=== PATIENT | male | born 1945 | race Caucasian/White ===

== ENCOUNTER 2017-09-23 07:22 | Emergency (ER) | payer MEDICARE ==
[~2017-09-23] VITALS: Ht 182.9 cm; Wt 93.9 kg
[~2017-09-23 07:22] MED LIST: AMLO2.5T PO; COZA100T PO; FISH1200 PO; LIPI40TA PO; ST J81CH PO; TAB-TAB PO; [UNRECOGNIZED DRUG - OTHER]
[2017-09-23 07:24] VITALS: BP 163/83; PULSE 106; RESP 16; TEMP 98.2; O2SAT 97
[2017-09-23] MEDS ORDERED: ASPIRIN 81 MG CHEW TAB PO ONE (07:45)
[2017-09-23] MEDS ORDERED: SODIUM CHLORIDE 0.9% FLUSH 10 ML FLUSH IVF PRN (07:45)
[2017-09-23 07:51] VITALS: BP 150/94; PULSE 97; RESP 16; O2SAT 97
--- NOTE | 2017-09-23 07:51 | PD ---
HPI Chief Complaint: Chest Pain Time Seen by Provider: 07:29 Travel History International Travel<30 days: No Contact w/Intl Traveler<30days: No Traveled to known affect area: No History of Present Illness HPI This is a 71-year-old male with a history of hypertension, hyperlipidemia and tobacco abuse who presents for chest pain. Over the last week, he has had episodes of pain in the left upper chest that radiates to the left arm. He has had intermittent tingling in the left arm. He also has had a vague pain on the left side of the anterior neck at times. It is not aggravated by turning his head or palpating his neck. He states that he has felt flushed during these episodes. No shortness of breath. Symptoms are mild in severity. Sore in nature. Onset gradual. No known alleviating or aggravating factors. He took 81 mg of aspirin this morning. He denies any current chest pain. He states that he had bronchitis 2 weeks ago but no current fever, chills, congestion, sore throat, difficulty speaking or swallowing. No vomiting or diarrhea. PFSH Past Medical History Anxiety: No Depression: No Cancer: No Cardiovascular Problems: Yes High Cholesterol: Yes Diminished Hearing: No Endocrine: No GERD: Yes Genitourinary: Yes (problems completely emptying bladder) Hypertension: Yes Immune Disorder: No Musculoskeletal: No Neurologic: No Psychiatric: No Reproductive: No Respiratory: No Past Surgical History Narrative Surgical Hernia repair, cataract surgery Abdominal Surgery: No Cardiac Surgery: No Ear Surgery: No Endocrine Surgery: No Eye Surgery: No Genitourinary Surgery: No Gynecologic Surgery: No Oral Surgery: No Thoracic Surgery: No Social History Alcohol Use: Yes (SOCIALLY) Tobacco Use: Yes (1/2 PPD) Substance Use: No Allergies-Medications (Allergen,Severity, Reaction): Coded Allergies: No Known Allergies (Unverified Adverse Reaction, Unknown, 09/23/17) Reported Meds & Prescriptions Reported Meds & Active Scripts Active Reported Metamucil Original Texture (Psyllium Hydrophilic Mucilloid) 3.4 Gram/7 Gram Pow 1 Scoop PO DIRECTED PRN 1 rounded TEASPOON in 8 oz of liquid at the first sign of irregularity. Lipitor (Atorvastatin Calcium) 20 Mg Tab 20 Mg PO HS Hydrochlorothiazide 25 Mg Tab 25 Mg PO DAILY Ocuvite (Multiple Vitamins W/ Minerals) 1 Tab 1 Tab PO DAILY Centrum Silver (Multiple Vitamins W/ Minerals) 400 Mcg-250 Mcg Chw 1 Tab PO DAILY Aspirin EC (Aspirin) 81 Mg Tabdr 81 Mg PO DAILY Losartan (Losartan Potassium) 100 Mg Tab 100 Mg PO DAILY Review of Systems Except as stated in HPI: all other systems reviewed are Neg Physical Exam Narrative GENERAL: Alert, well nourished, well appearing patient resting on the bed in no acute distress. Vital Signs reviewed SKIN: Focused skin assessment warm/dry. HEAD: Atraumatic. Normocephalic. EYES: Pupils equal and round. No scleral icterus. No injection or drainage. ENT: No nasal bleeding or discharge. Mucous membranes pink and moist. Posterior oropharynx with no erythema, edema, exudate. Uvula is midline NECK: Trachea midline. No JVD. Spontaneous, painless full range of motion with no meningismus CARDIOVASCULAR: Regular rate and rhythm. No murmur appreciated. Extremities warm and well perfused with bounding peripheral pulses RESPIRATORY: No accessory muscle use. Clear to auscultation. Breath sounds equal bilaterally. Breathing easily and speaking in full sentences GASTROINTESTINAL: Abdomen soft, non-tender, nondistended. Normal bowel sounds. No rigid, rebound, guarding MUSCULOSKELETAL: No obvious deformities. No clubbing. No cyanosis. No edema. Compartments are soft. Painless full range of motion of left shoulder. NEUROLOGICAL: Awake and alert. No obvious cranial nerve deficits. Motor grossly within normal limits. Normal speech. Sensation intact. Normal gait. No pronator drift.. No paresthesias in left arm. Data Data Last Documented VS Vital Signs Date Time Temp Pulse Resp B/P (MAP) Pulse Ox O2 Delivery O2 Flow Rate FiO2 09/23/17 07:51 97 16 150/94 (112) 09/23/17 07:51 97 Room Air 09/23/17 07:24 98.2 Orders Orders Electrocardiogram (09/23/17 07:38) Basic Metabolic Panel (Bmp) (09/23/17 07:38) Ckmb (Isoenzyme) Profile (09/23/17 07:38) Complete Blood Count With Diff (09/23/17 07:38) Magnesium (Mg) (09/23/17 07:38) Prothrombin Time / Inr (Pt) (09/23/17 07:38) Act Partial Throm Time (Ptt) (09/23/17 07:38) Troponin I (09/23/17 07:38) Ecg Monitoring (09/23/17 07:38) Bilateral Bp Monitoring (09/23/17 07:38) Iv Access Insert/Monitor (09/23/17 07:38) Oximetry (09/23/17 07:38) Aspirin Chew (Aspirin Chew) (09/23/17 07:45) Sodium Chloride 0.9% Flush (Ns Flush) (09/23/17 07:45) Chest, Pa & Lat (09/23/17 07:38) Ct Pulmonary Angiogram (09/23/17 09:04) Iohexol 350 Inj (Omnipaque 350 Inj) (09/23/17 09:34) Labs Laboratory Tests Test 09/23/17 08:10 White Blood Count 8.6 TH/MM3 Red Blood Count 4.16 MIL/MM3 Hemoglobin 13.1 GM/DL Hematocrit 38.3 % Mean Corpuscular Volume 92.0 FL Mean Corpuscular Hemoglobin 31.5 PG Mean Corpuscular Hemoglobin Concent 34.3 % Red Cell Distribution Width 12.9 % Platelet Count 302 TH/MM3 Mean Platelet Volume 7.8 FL Neutrophils (%) (Auto) 77.0 % Lymphocytes (%) (Auto) 16.3 % Monocytes (%) (Auto) 4.3 % Eosinophils (%) (Auto) 1.7 % Basophils (%) (Auto) 0.7 % Neutrophils # (Auto) 6.6 TH/MM3 Lymphocytes # (Auto) 1.4 TH/MM3 Monocytes # (Auto) 0.4 TH/MM3 Eosinophils # (Auto) 0.1 TH/MM3 Basophils # (Auto) 0.1 TH/MM3 CBC Comment DIFF FINAL Differential Comment Prothrombin Time 9.9 SEC Prothromb Time International Ratio 1.0 RATIO Activated Partial Thromboplast Time 26.4 SEC Blood Urea Nitrogen 27 MG/DL Creatinine 1.40 MG/DL Random Glucose 232 MG/DL Calcium Level 9.0 MG/DL Magnesium Level 2.0 MG/DL Sodium Level 134 MEQ/L Potassium Level 4.1 MEQ/L Chloride Level 103 MEQ/L Carbon Dioxide Level 20.9 MEQ/L Anion Gap 10 MEQ/L Estimat Glomerular Filtration Rate 50 ML/MIN Total Creatine Kinase 91 U/L Troponin I LESS THAN 0.02 NG/ML MDM Medical Decision Making Medical Screen Exam Complete: Yes Emergency Medical Condition: Yes Medical Record Reviewed: Yes Interpretation(s) EKG shows sinus tachycardia with a rate of 101. No acute ST elevation Differential Diagnosis Unstable angina, atypical angina, musculoskeletal pain, neuropathy, radiculopathy Narrative Course The patient was placed on a tester rocket engine. IV access was established. EKG, imaging, labs were performed. Patient was given aspirin. He had no chest pain in the emergency department. At 9:50 AM: I reviewed the results of the workup with him. I explained that based on his history and symptoms, I am very concerned for possible cardiac etiology of his pain. I recommended that the patient be admitted for further evaluation and care. Patient adamantly refuses to be admitted. He understands that he is leaving AGAINST MEDICAL ADVICE. AMA : The risks of leaving against medical advice without further evaluation treatment were discussed with the patient. These risks include cardiac dysfunction, cardiac dysrhythmia, possible heart attack, possible stroke or . The patient indicated understanding of these risks and appeared to have the capacity to make this decision. I encouraged him to follow-up with his primary physician as soon as possible and to return immediately if he had chest pain, worsening symptoms or changed his mind. He understands we are happy to see him at any time. Diagnosis Primary Impression: Acute chest pain Additional Impression: Left against medical advice Patient Instructions: Against Medical Advice (DC), General Instructions Additional Instructions: YOU ARE LEAVING AGAINST MEDICAL ADVICE. WE ARE CONCERNED ABOUT YOUR HEART. PLEASE FOLLOW UP WITH YOUR DOCTOR KRISTINE. RETURN IF YOU CHANGE YOUR MIND OR HAVE WORSENING SYMPTOMS. Disposition: 07 AGAINST MEDICAL ADVICE Roma Whitman MD Sep 23, 2017 07:51
[2017-09-23] MEDS ORDERED: CENTCHW3 PO (07:56)
[2017-09-23] MEDS ORDERED: HYDR25TA5 PO (07:56)
[2017-09-23] MEDS ORDERED: LOSA100T PO (07:56)
[2017-09-23] MEDS ORDERED: ASPI81TA23 PO (07:56)
[2017-09-23] MEDS ORDERED: OCUVTAB PO (07:56)
[2017-09-23] MEDS ORDERED: LIPI20TA PO (07:57)
[2017-09-23] MEDS ORDERED: META48.53 PO (07:57)
--- NOTE | 2017-09-23 08:10 | RADRPT ---
EXAM DATE/TIME: 09/23/2017 07:49 [facility] COMPARISON: CHEST PA & LAT, September 08, 2014, 0:46. INDICATIONS : Chest pains, short of breath MEDICAL HISTORY : Chronic obstructive pulmonary disease. SURGICAL HISTORY : None. ENCOUNTER: Initial ACUITY: 4 - 6 days PAIN SCORE: 7/10 LOCATION: Bilateral chest FINDINGS: PA and lateral views of the chest demonstrate the lungs to be symmetrically aerated without evidence of mass, infiltrate or effusion. The cardiomediastinal contours are unremarkable. Osseous structure s are intact. CONCLUSION: Normal examination. Mild hyperexpansion consistent with COPD, unchanged Scotty Barker MD on September 23, 2017 at 8:09 Board Certified Radiologist. This report was verified electronically.
[2017-09-23 08:19] LABS: AUTOMATED NEUTROPHIL # 6.6 TH/MM3 (1.8-7.7); BASOPHIL # 0.1 TH/MM3 (0-0.2); BASOPHIL % 0.7 % (0.0-2.0); EOSINOPHIL # 0.1 TH/MM3 (0-0.4); EOSINOPHIL % 1.7 % (0.0-4.0); HEMATOCRIT 38.3 % (39.0-51.0); HEMOGLOBIN 13.1 GM/DL (13.0-17.0); LYMPH % 16.3 % (9.0-44.0); LYMPHOCYTE # 1.4 TH/MM3 (1.0-4.8); MEAN CORPUSCULAR HEMOGLOBIN 31.5 PG (27.0-34.0); MEAN CORPUSCULAR HGB CONC 34.3 % (32.0-36.0); MEAN PLATELET VOLUME 7.8 FL (7.0-11.0); MONO % 4.3 % (0.0-8.0); MONOCYTE # 0.4 TH/MM3 (0-0.9); PLATELET COUNT 302 TH/MM3 (150-450); RED BLOOD COUNT 4.16 MIL/MM3 (4.50-5.90); RED CELL DISTRIBUTION WIDTH 12.9 % (11.6-17.2); WHITE BLOOD COUNT 8.6 TH/MM3 (4.0-11.0)
[2017-09-23 08:30] VITALS: BP 120/60; PULSE 82; RESP 16; O2SAT 97
[2017-09-23 08:50] LABS: CHLORIDE 103 MEQ/L (98-107); SODIUM (NA) 134 MEQ/L (136-145)
[2017-09-23 08:53] LABS: BICARBONATE 20.9 MEQ/L (21.0-32.0); BLOOD UREA NITROGEN 27 MG/DL (7-18); GLUCOSE,RANDOM 232 MG/DL (74-106)
[2017-09-23 08:56] LABS: GLOMERULAR FILTRATION RATE 50 ML/MIN (>89)
--- NOTE | 2017-09-23 08:56 | EKG ---
Date Performed: 09/23/2017 Time Performed: 07:45:43 PTAGE: 71 years EKG: SINUS TACHYCARDIA ABNORMAL RHYTHM ECG PREVIOUS TRACING : 09/08/2014 05.47 DOCTOR: Scotty Clark Interpretating Date/Time 09/23/2017 08:55:00
[2017-09-23 09:01] LABS: TROPONIN I LESS THAN 0.02 NG/ML (0.02-0.05)
[2017-09-23 09:30] VITALS: BP 126/79; PULSE 78; RESP 16; O2SAT 97
[2017-09-23] MEDS ORDERED: IOHEXOL 350 MG/ML 10 ML VIAL (for RAD DIAG) IVCONTRAST ONE (09:34)
--- NOTE | 2017-09-23 09:37 | RADRPT ---
EXAM DATE/TIME: 09/23/2017 09:20 [facility] COMPARISON: No previous studies available for comparison. INDICATIONS : Sore throat, left shoulder pain down arm with numbness IV CONTRAST: 75 cc Omnipaque 350 (iohexol) IV RADIATION DOSE: 14.97 CTDIvol (mGy) MEDICAL HISTORY : Cardiovascular disease. Hypercholesterolemia. Hypertension.GERD,Renal calculi SURGICAL HISTORY : Double hernia ENCOUNTER: Initial ACUITY: 3 days PAIN SCALE: 2/10 LOCATION: Left chest TECHNIQUE: Volumetric scanning of the chest was performed using a pulmonary embolism protocol MIP images were re constructed. Using automated exposure control and adjustment of the mA and/or kV according to patien t size, radiation dose was kept as low as reasonably achievable to obtain optimal diagnostic quality images. DICOM format image data is available electronically for review and comparison. Follow-up recommendations for detected pulmonary nodules are based at a minimum on nodule size and pa tient risk factors according to Fleischner Society Guidelines. FINDINGS: PULMONARY ARTERIES: No filling defects are seen in the pulmonary arteries through the segmental level. LUNGS: There is no consolidation or pneumothorax . No concerning pulmonary nodule is visualized. PLEURAE: There is no pleural thickening or pleural effusion. MEDIASTINUM: There is good visualization of the great vessels of the middle mediastinum. No evidence of mediastin al or hilar adenopathy/mass. MUSCULOSKELETAL: Within normal limits for patient age. MISCELLANEOUS: The visualized upper abdominal organs demonstrate no acute abnormality. CONCLUSION: Normal examination. Scotty Barker MD on September 23, 2017 at 9:35 Board Certified Radiologist. This report was verified electronically.
[2017-09-23 09:41] LABS: PROTHROMBIN TIME - PATIENT 9.9 SEC (9.8-11.6)
[2017-09-23 10:20] VITALS: BP 134/82
== END 2017-09-23 10:25 | disposition left against medical advice (07) ==
LOC: PHED 07:22
DX: R07.9 Chest pain, unspecified (principal); R94.31 Abnormal electrocardiogram [ECG] [EKG]; I10 Essential (primary) hypertension; E78.5 Hyperlipidemia, unspecified; F17.200 Nicotine dependence, unspecified, uncomplicated; K21.9 Gastro-esophageal reflux disease without esophagitis; Z53.20 Procedure and treatment not carried out because of patient's decision for unspecified reasons
CPT/HCPCS: 71046; 71275; 80048; 82550; 83735; 84484; 85025; 85610; 85730; 93005; 99285; Q9967